=== PATIENT | female | born 1960 | race Two or more races ===

== ENCOUNTER 2016-10-15 09:35 | Emergency (ER) | payer SELFPAY ==
[~2016-10-15] VITALS: Ht 160 cm; Wt 68.0 kg
[2016-10-15] MEDS ORDERED: IV NORMAL SALINE 1000ML BAG 1,000 ML IV SCH (09:45)
[2016-10-15] MEDS ORDERED: ONDANSETRON PF 4 MG/2 ML VIAL. IV ONE (09:45)
[2016-10-15 10:31] LABS: BASO # 0.1 x10^3/uL (0.0-0.2); BASO % 1 % (0-3); EOS % 10 % (0-3); HEMATOCRIT 29.5 % (36.0-47.0); HEMOGLOBIN 9.7 g/dL (12.0-15.5); LYMPH # 1.5 x10^3/uL (1.0-4.8); LYMPH % 20 % (24-48); MEAN CORPUSCULAR HEMOGLOBIN 27 pg (25-35); MEAN CORPUSCULAR HGB CONC 33 g/dL (31-37); MEAN CORPUSCULAR VOLUME 81 fL (79-100); MONO % 7 % (0-9); NEUT % 62 % (31-73); PLATELET COUNT 491 x10^3/uL (140-400); RED BLOOD COUNT 3.66 x10^6/uL (3.50-5.40); WHITE BLOOD COUNT 7.7 x10^3/uL (4.0-11.0)
--- NOTE | 2016-10-15 10:31 | PHYS DOC ---
Past Medical History Past Medical History: No Pertinent History Past Surgical History: No Surgical History Alcohol Use: None Drug Use: None Adult General Chief Complaint Chief Complaint: BLOODY STOOL HPI HPI Patient is a 56 year old Mongolian speaking female who presents with crampy type abdominal pain for the last 2 weeks in addition to 4-5 loose stools and bright red blood per rectum. She states his been going on for several weeks she was seen by urgent care on Saturday and given suppositories for hemorrhoids and on follow-up today by the urgent care she told them her symptoms have gotten worse now she feels lightheaded and dizzy. She denies any abdominal surgeries. She states the pain is worse early in the morning and gets better throughout the day. The pain is located throughout her entire abdomen and is crampy in nature. Review of Systems Review of Systems Constitutional: Denies fever or chills [] Eyes: Denies change in visual acuity, redness, or eye pain [] HENT: Denies nasal congestion or sore throat [] Respiratory: Denies cough or shortness of breath [] Cardiovascular: No additional information not addressed in HPI [] GI: Denies, nausea, vomiting , positive for abdominal pain, bloody stools, and diarrhea [] : Denies dysuria or hematuria [] Musculoskeletal: Denies back pain or joint pain [] Integument: Denies rash or skin lesions [] Neurologic: Denies headache, focal weakness or sensory changes [] Endocrine: Denies polyuria or polydipsia [] Current Medications Current Medications Current Medications Medications (Trade) Dose Ordered Sig/Na Start Time Stop Time Status Last Admin Dose Admin Ciprofloxacin (Cipro) 500 mg 1X ONCE 10/15/16 14:45 10/15/16 14:46 DC Info (Do NOT chart on this entry -- for MONITORING) 1 each PRN DAILY PRN 10/15/16 13:45 10/17/16 13:44 Iohexol (Omnipaque 300 Mg/ml) 75 ml 1X ONCE 10/15/16 13:30 10/15/16 13:37 DC Metronidazole (Flagyl) 500 mg 1X ONCE 10/15/16 14:45 10/15/16 14:46 DC Ondansetron HCl (Zofran) 4 mg 1X ONCE 10/15/16 09:45 10/15/16 10:43 DC 10/15/16 11:06 4 MG Sodium Chloride (Iv Sodium Chloride 0.9% 1000ml Bag) 1,000 ml @ 100 mls/hr Q10H 10/15/16 09:45 10/15/16 19:44 10/15/16 11:06 100 MLS/HR Allergies Allergies Allergies Coded Allergies Type Severity Reaction Last Updated Verified No Known Drug Allergies 10/15/16 No Physical Exam Physical Exam Constitutional: Well developed, well nourished, no acute distress, non-toxic appearance. [] HENT: Normocephalic, atraumatic, bilateral external ears normal, oropharynx moist, no oral exudates, nose normal. [] Eyes: PERRLA, EOMI, conjunctiva normal, no discharge. [] Neck: Normal range of motion, no tenderness, supple, no stridor. [] Cardiovascular:Heart rate regular rhythm, no murmur [] Lungs & Thorax: Bilateral breath sounds clear to auscultation [] Abdomen/rectal: Bowel sounds normal, soft, mild tenderness palpation diffusely, no bowel or guarding noted, no masses, no pulsatile masses, rectal exam shows moderate external hemorrhoids, normal tone, no blood or stool in the vault. [] Skin: Warm, dry, no erythema, no rash. [] Back: No tenderness, no CVA tenderness. [] Extremities: No tenderness, no cyanosis, no clubbing, ROM intact, no edema. [] Neurologic: Alert and oriented X 3, normal motor function, normal sensory function, no focal deficits noted. [] Psychologic: Affect normal, judgement normal, mood normal. [] Current Patient Data Vital Signs Vital Signs Date Time Temp Pulse Resp B/P Pulse Ox O2 Delivery O2 Flow Rate FiO2 10/15/16 12:00 78 17 106/56 95 Room Air 10/15/16 09:45 98.8 98.8 Lab Values Laboratory Tests Test 10/15/16 10:14 10/15/16 10:34 10/15/16 11:10 White Blood Count 7.7x10^3/uL (4.0-11.0) Red Blood Count 3.66x10^6/uL (3.50-5.40) Hemoglobin 9.7g/dL (12.0-15.5) L Hematocrit 29.5% (36.0-47.0) L Mean Corpuscular Volume 81fL (79-100) Mean Corpuscular Hemoglobin 27pg (25-35) Mean Corpuscular Hemoglobin Concent 33g/dL (31-37) Red Cell Distribution Width 14.0% (11.5-14.5) Platelet Count 491x10^3/uL (140-400) H Neutrophils (%) (Auto) 62% (31-73) Lymphocytes (%) (Auto) 20% (24-48) L Monocytes (%) (Auto) 7% (0-9) Eosinophils (%) (Auto) 10% (0-3) H Basophils (%) (Auto) 1% (0-3) Neutrophils # (Auto) 4.8x10^3uL (1.8-7.7) Lymphocytes # (Auto) 1.5x10^3/uL (1.0-4.8) Monocytes # (Auto) 0.6x10^3/uL (0.0-1.1) Eosinophils # (Auto) 0.7x10^3/uL (0.0-0.7) Basophils # (Auto) 0.1x10^3/uL (0.0-0.2) Prothrombin Time 14.2SEC (11.7-14.0) H Prothrombin Time INR 1.2 (0.8-1.1) H PTT 29SEC (24-38) Sodium Level 141mmol/L (136-145) Potassium Level 3.5mmol/L (3.5-5.1) Chloride Level 104mmol/L (98-107) Carbon Dioxide Level 28mmol/L (21-32) Anion Gap 9 (6-14) Blood Urea Nitrogen 4mg/dL (7-20) L Creatinine 0.7mg/dL (0.6-1.0) Estimated GFR (Cockcroft-Gault) 86.6 Glucose Level 135mg/dL (70-99) H Calcium Level 8.4mg/dL (8.5-10.1) L Total Bilirubin 0.2mg/dL (0.2-1.0) Direct Bilirubin 0.1mg/dL (0.0-0.2) Aspartate Amino Transferase (AST) 15U/L (15-37) Alanine Aminotransferase (ALT) 18U/L (14-59) Alkaline Phosphatase 82U/L (46-116) Creatine Kinase 53U/L (26-192) Creatine Kinase MB (Mass) < 0.5ng/mL (0.0-3.6) Creatine Kinase MB Relative Index % (0-4) Total Protein 6.7g/dL (6.4-8.2) Albumin 2.5g/dL (3.4-5.0) L Lipase 481U/L (73-393) H Serum Test, Qualitative Negative (NEG) Stool Occult Blood Negative (NEG) Urine Collection Type Unknown Urine Color Yellow Urine Clarity Clear Urine pH 5.5 Urine Specific Triplett 1.010 Urine Protein Negativemg/dL (NEG-TRACE) Urine Glucose (UA) Negativemg/dL (NEG) Urine Ketones (Stick) Negativemg/dL (NEG) Urine Blood Negative (NEG) Urine Nitrite Negative (NEG) Urine Bilirubin Negative (NEG) Urine Urobilinogen Dipstick 0.2mg/dL (0.2 mg/dL) Urine Leukocyte Esterase Negative (NEG) Urine RBC 0/HPF (0-2) Urine WBC Rare/HPF (0-4) Urine Squamous Epithelial Cells Occ/LPF Urine Bacteria 0/HPF (0-FEW) Urine Mucus Marked/LPF Laboratory Tests 10/15/16 10:14 Laboratory Tests 10/15/16 10:14 EKG EKG [] Radiology/Procedures Radiology/Procedures [facility] [address] [place] [address] IMAGING REPORT Signed PATIENT: ANTONIO ELLSWORTH ACCOUNT: [id number] : 1960 LOCATION: ER AGE: 56 SEX: F EXAM STATUS: REG ER ORD. PHYSICIAN: SIVAKUMAR DIAZ MD REASON: abd pain PROCEDURE: CT ABD PELV W/ IV CONTRST ONLY CT abdomen and pelvis with IV contrast History: Abdominal pain for 15 days, diarrhea. Comparison: None. Technique: After administration of intravenous contrast, 75 mL Omnipaque 300, helical CT of the abdomen and pelvis was performed from the lung bases through the ischial tuberosities. Axial, sagittal, and coronal reconstructions were obtained. One or more of the following individualized dose reduction techniques were utilized for the study: Automated exposure control Adjustment of mA and/or kV according to patient's size Use of iterative reconstruction technique. Findings: Evaluation of enteric structures may be limited by lack of oral contrast. There is also motion artifact at multiple levels which could obscure subtle abnormalities. Liver demonstrates several low-attenuation lesions with the largest at the junction of the right left hepatic lobe measuring 1.5 cm, compatible with cyst. Spleen, pancreas, gallbladder, and bilateral adrenal glands are unremarkable. Bilateral kidneys enhance symmetrically. No free air or free fluid is identified in the abdomen or pelvis. There is small fat-containing epigastric ventral hernia. Appendix appears within normal limits. Urinary bladder is unremarkable. Uterus and adnexa are unremarkable. There is evidence of mild wall thickening involving the rectum, sigmoid colon, and distal descending colon. There may be mild wall thickening of other portions of the colon, although evaluation is limited secondary to motion. Impression: 1. Mild wall thickening involving the distal colon and rectum. Other portions of the colon may also demonstrate mild wall thickening, though evaluation is limited. Findings are compatible with nonspecific proctocolitis. Consider infectious, inflammatory, or ischemic causes. 2. Fat-containing epigastric ventral hernia. DICTATED and SIGNED BY: ARELI ROBIN MD DATE: 10/15/16 1413 CC: SIVAKUMAR DIAZ MD; YAKOV BARRIENTOS ~ Course & Med Decision Making Course & Med Decision Making Pertinent Labs and Imaging studies reviewed. (See chart for details) CT scan shows colitis. Patient feels well enough to go home. Started Cipro Flagyl for 10 days. She is instructed to follow-up with her primary care physician on , return precautions given for worsening abdominal pain, fevers, or other concerns. She is agreeable plan and to follow up with Dr. Cheema. computerized table cutter was used during the entire interview, physical exam and discharge. Dragon Disclaimer Dragon Disclaimer This electronic medical record was generated, in whole or in part, using a voice recognition dictation system. Departure Departure Impression: Primary Impression: Colitis Disposition: HOME, SELF-CARE Condition: STABLE Referrals: GABBI ABRAHAM MD Patient Instructions: Colitis Additional Instructions: The CAT scan shows that you might have colitis which is an inflammation of your colon. On your examination did not appreciate any blood in your stools. You have external hemorrhoids. Your being discharged home with antibiotics for the next 10 days. Please follow-up with her primary care physician on . You need to call Dr. Zhang's office to schedule a follow-up appointment with him. If your pain gets worse, you have lightheadedness dizziness, fevers, blood in your stools or other concerns please return back to emergency room. Scripts Metronidazole (Flagyl)500 Mg [id number] Mg PO TID 10 Days Prov:SIVAKUMAR DIAZ MD 10/15/16 Ciprofloxacin Hcl (Cipro)500 Mg Tablet1 Tab PO BID #20 TAB Prov:SIVAKUMAR DIAZ MD 10/15/16 SIVAKUMAR DIAZ MD Oct 15, 2016 10:31
[2016-10-15 10:41] LABS: NEG OBC SER NEG; POS OBC SER POS
[2016-10-15 10:43] LABS: INR 1.2 (0.8-1.1); PROTHROMBIN TIME PATIENT 14.2 SEC (11.7-14.0)
[2016-10-15 10:52] LABS: CALCIUM 8.4 mg/dL (8.5-10.1); CREATININE 0.7 mg/dL (0.6-1.0); GFR 86.6; POTASSIUM 3.5 mmol/L (3.5-5.1)
[2016-10-15 10:56] LABS: NEG OBC FOB NEG; POS OBC FOB POS
[2016-10-15 10:59] LABS: CKMB MASS < 0.5 ng/mL (0.0-3.6); CREATINE KINASE 53 U/L (26-192)
[2016-10-15 11:00] LABS: ALBUMIN 2.5 g/dL (3.4-5.0); DIRECT BILIRUBIN 0.1 mg/dL (0.0-0.2); TOTAL BILIRUBIN 0.2 mg/dL (0.2-1.0); TOTAL PROTEIN 6.7 g/dL (6.4-8.2)
[2016-10-15 11:22] LABS: BILIRUBIN,URINE NEGATIVE (NEG); GLUCOSE,URINE NEGATIVE (NEG); NITRITE,URINE NEGATIVE (NEG); PH,URINE 5.5; PROTEIN,URINE NEGATIVE (NEG-TRACE); UROBILINOGEN,URINE 0.2 mg/dL (0.2 mg/dL)
[2016-10-15 11:39] LABS: BACTERIA,URINE 0 /HPF (0-FEW); RBC,URINE 0 /HPF (0-2); SQUAMOUS EPITHELIAL CELL,UR OCC /LPF; WBC,URINE RARE /HPF (0-4)
[2016-10-15] MEDS ORDERED: IOHEXOL 300 MG/ML 75 ML VIAL IV ONE (13:30)
[2016-10-15] MEDS ORDERED: CONTRAST GIVEN MC PRN (13:45)
--- NOTE | 2016-10-15 14:22 | RAD ---
CT abdomen and pelvis with IV contrast History: Abdominal pain for 15 days, diarrhea. Comparison: None. Technique: After administration of intravenous contrast, 75 mL Omnipaque 300, helical CT of the abdomen and pelvis was performed from the lung bases through the ischial tuberosities. Axial, sagittal, and coronal reconstructions were obtained. One or more of the following individualized dose reduction techniques were utilized for the study: Automated exposure control Adjustment of mA and/or kV according to patient's size Use of iterative reconstruction technique. Findings: Evaluation of enteric structures may be limited by lack of oral contrast. There is also motion artifact at multiple levels which could obscure subtle abnormalities. Liver demonstrates several low-attenuation lesions with the largest at the junction of the right left hepatic lobe measuring 1.5 cm, compatible with cyst. Spleen, pancreas, gallbladder, and bilateral adrenal glands are unremarkable. Bilateral kidneys enhance symmetrically. No free air or free fluid is identified in the abdomen or pelvis. There is small fat-containing epigastric ventral hernia. Appendix appears within normal limits. Urinary bladder is unremarkable. Uterus and adnexa are unremarkable. There is evidence of mild wall thickening involving the rectum, sigmoid colon, and distal descending colon. There may be mild wall thickening of other portions of the colon, although evaluation is limited secondary to motion. Impression: 1. Mild wall thickening involving the distal colon and rectum. Other portions of the colon may also demonstrate mild wall thickening, though evaluation is limited. Findings are compatible with nonspecific proctocolitis. Consider infectious, inflammatory, or ischemic causes. 2. Fat-containing epigastric ventral hernia.
[2016-10-15] MEDS ORDERED: METRONIDAZOLE 500 MG TABLET. PO ONE (14:45)
[2016-10-15] MEDS ORDERED: CIPROFLOXACIN HCL 250 MG TABLET. PO ONE (14:45)
[2016-10-15 15:00] VITALS: BP 108/55
[2016-10-15] MEDS ORDERED: CIPR500T94 PO (15:22)
[2016-10-15] MEDS ORDERED: METR500T PO (15:22)
== END 2016-10-15 15:25 | disposition home or self-care (01) ==
LOC: ER 09:35
DX: K52.9 Noninfective gastroenteritis and colitis, unspecified (principal); R19.7 Diarrhea, unspecified
CPT/HCPCS: 36415; 74177; 80048; 80076; 81001; 82274; 82553; 83690; 84703; 85027; 85610; 85730; 86850; 86900; 86901; 96361; 96374; 99285; J2405; J7030